=== PATIENT | male | born 1985 | race African-American/Black ===

== ENCOUNTER 2020-02-24 23:29 | Emergency (ER) | payer MEDICAID ==
[~2020-02-24] VITALS: Ht 185.4 cm; Wt 105.0 kg
[2020-02-24] MEDS ORDERED: KETOROLAC 60MG/2ML VIAL IM STA (23:59)
[2020-02-25 00:17] LABS: BASOPHILS % 0.2 % (0.0-2.0); HEMATOCRIT. 44.2 % (42.0-52.0); HEMOGLOBIN. 15.5 g/dL (14.0-18.0); LYMPHOCYTES % 7.5 % (20.0-50.0); MEAN CORPUSCULAR HEMOGLOBIN 29.8 pg (28.0-32.0); MEAN PLATELET VOLUME 7.9 fl (7.4-10.4); MONOCYTES % 7.1 % (2.0-8.0); NEUTROPHILS % 85.2 % (40.0-76.0); PLATELET 285 x1000/uL (130-400); RED BLOOD CELL COUNT 5.21 mill/uL (4.7-6.1); RED CELL DISTRIBUTION WIDTH 13.9 % (11.6-14.6)
[2020-02-25 00:29] LABS: CHLORIDE 100 mEq/L (98-107)
[2020-02-25 00:33] LABS: ETHANOL BLOOD < 10 mg/dL
[2020-02-25] MEDS ORDERED: ONDANSETRON HCL 4MG/2ML INJ IV STA (01:24)
[2020-02-25] MEDS ORDERED: SODIUM CHLORIDE 0.9% 1,000 ML IV ONE (01:24)
[2020-02-25] MEDS ORDERED: ONDANSETRON 4MG ODT PO ONE (01:30)
[2020-02-25] MEDS ORDERED: VISCOUS LIDOCAINE 2% 15 ML UDC PO STA (02:05)
[2020-02-25] MEDS ORDERED: MAGNESIUM/ALUMINUM HYDROXIDE/SIMETHICONE 30ML UDC PO STA (02:05)
[2020-02-25 03:41] VITALS: BP 131/86
[2020-02-25 03:49] LABS: CLARITY URINE CLEAR (CLEAR); COLOR URINE YELLOW (YELLOW); KETONES URINE 1+ (NEGATIVE); LEUKOCYTE ESTERASE URINE TRACE (NEGATIVE); NITRITE URINE NEGATIVE (NEGATIVE); OCCULT BLOOD URINE NEGATIVE (NEGATIVE); PROTEIN URINE 2+ (NEGATIVE); SPECIFIC GRAVITY URINE 1.033 (1.005-1.030)
[2020-02-25 04:01] LABS: *AMPHETAMINES SCREEN URINE NEGATIVE (NEGATIVE); *BARBITURATES SCREEN URINE NEGATIVE (NEGATIVE); *BENZODIAZEPINES SCREEN URINE PRESUMTIVE POSITIVE (NEGATIVE); *COCAINE SCREEN URINE NEGATIVE (NEGATIVE); METHADONE URINE SCREEN NEGATIVE (NEGATIVE)
[2020-02-25 04:02] LABS: CANNABINOID URINE SCREEN PRESUMTIVE POSITIVE (NEGATIVE); OPIATES URINE SCREEN NEGATIVE (NEGATIVE); PHENCYCLIDINE URINE SCREEN NEGATIVE (NEGATIVE)
== END 2020-02-25 04:34 | disposition home or self-care (01) ==
LOC: ER 23:29
DX: K29.70 Gastritis, unspecified, without bleeding (principal); K21.9 Gastro-esophageal reflux disease without esophagitis; Z87.19 Personal history of other diseases of the digestive system
CPT/HCPCS: 36415; 76700; 80053; 80305; 80320; 81003; 83690; 85025; 93005; 96372; 96374; 99285; J1885; J2405; J7030; G0480